=== PATIENT | male | born 1975 | race Caucasian/White ===

== ENCOUNTER 2016-11-26 10:53 | Emergency (ER) | payer SELFPAY ==
[~2016-11-26] VITALS: Ht 170.2 cm; Wt 99.0 kg
[2016-11-26 11:05] VITALS: Ht 170.2 cm; Wt 99.0 kg
[2016-11-26] MEDS ORDERED: IBUP-1724 PO (11:20)
[2016-11-26] MEDS ORDERED: CHLO4TAB32 PO (11:20)
[2016-11-26] MEDS ORDERED: DIPH25TA25 PO (11:20)
[2016-11-26] MEDS ORDERED: GLUC-120 PO (11:21)
[2016-11-26] MEDS ORDERED: UBID100C10 PO (11:21)
[2016-11-26] MEDS ORDERED: MULT1TAB69 PO (11:21)
[2016-11-26] MEDS ORDERED: OMEG300C PO (11:23)
[2016-11-26] MEDS ORDERED: VITA200T6 PO (11:23)
[2016-11-26] MEDS ORDERED: CINN500C14 PO (11:23)
[2016-11-26] MEDS ORDERED: NORMAL SALINE 1,000 ML IV ONE (11:43)
--- NOTE | 2016-11-26 11:43 | ERPDOC ---
Departure Disposition Decision Date: Nov 26, 2016 Disposition Decision Time: 13:27 Disposition: 01 DISCHARGED HOME, SELF-CARE Impression Impression Impression: Primary Impression: Gastroenteritis and colitis, viral Additional Impression: HTN (hypertension) Severity: Moderate Condition: Improved Seen By: Physician only Patient Instructions: Acute Nausea and Vomiting (ED) Problems/Meds/Labs Reviewed?: Yes Medications reviewed and manag: Yes Additional Instructions: Follow up with Dr Mcdermott next week per appointment. Zofran 4mg every 6 hours as needed for nausea Percocet 5mg tab, #5 tabs. may use one every 8 hours as needed for abd cramping. Follow up care ordered?: Yes Mental Status: Alert, Oriented Scripts Ondansetron (Zofran Odt) 4 Mg Tab.rapdis 4 MG PO Q6HR for NAUSEA, #30 TAB Oral disintegrating tablet Prov: CATRACHITA CORDOBA MD 11/26/16 Oxycodone HCl/Acetaminophen (Percocet 5-325 mg Tablet) 5-325 Tablet 1 TAB PO TID for PAIN, #5 TAB Take 1 tablet, by mouth, 4 times a day. Prov: CATRACHITA CORDOBA MD 11/26/16 HPI - Abdominal Pain General Chief Complaint: Abdominal Pain Stated Complaint: ABD PAIN Time Seen by Provider: 11:41 HPI - Abdominal Pain Initial Comments 41-year-old gentleman with epigastric pain, nausea and vomiting. Patient felt fine until yesterday when he vomited after dinner. He had a couple episodes of diarrhea. As well. This resolved overnight and he slept well. He ate breakfast this morning and threw up again. Tried to go to work, but was cramping so badly that he came to the emergency department. No fever, but has had chills. No dysuria or hesitancy or urgency, no flank pain. No shortness of breath dyspnea or chest pain. is not sick. He does have hypertension, also has a brother that had an ND when he was 43, same age as the patient. Allergies: Coded Allergies: No Known Allergies (Unverified , 11/26/16) Past History Past Medical History Metabolic: hypertension Surgical History Denies Surgeries Social History Smoking Status: Former smoker Substance Use Type: does not use Record Review Pertinent history updated: Yes Review of Systems Cardiovascular Cardiac: see HPI Pulmonary Respiratory: see HPI All other Systems All Other Systems: Reviewed and Negative Physical Exam General General Nourishment: well nourished, well developed, appears stated age General Body Habitus: well groomed Vitals and Pain First Documented Vital Signs Date Time Temp Pulse Resp B/P Pulse Ox O2 Delivery O2 Flow Rate FiO2 11/26/16 11:05 97.7 73 16 135/81 98 Room Air Weight: Kilograms: 99.000 Height (feet): 5 Height (inches): 7.00 Triage Pain Scale: Normal Exams: Head: Normocephalic w/o trauma Chest/Resp: Clear all clark, with good airflow, and symmetry bilaterally CV: Regular rate and rhythm, without murmur or gallop, Pulses 2+ all extremities, capillary refill, <2 seconds all ext., no pedal edema noted Abdomen: Bowel sounds positive, non-distended, no hepatosplenomegaly, masses or bruits noted Neurologic: Patient is alert, and oriented, cranial nerves, motor/sensory/ cerebellar, exams w/o gross deficits, to observation Psychiatric: Patient exhibits, appropriate attention, emotion and affect Abdomen (brief) Comments mild mid epigastric tenderness to palp. mild tenderness llq Differential Diagnoses Considering: Cholecystitis, Constipation, Diverticulitis, Gastroenteritis, GERD , GI Bleed, Hepatitis, Hernia, Ileus, UTI, Volvulus Progress Results/Orders Orders Procedure Category Date Status Time Iv Lock (Ed Only) EDM 11/26/16 Transmitted 11:43 Cbc W/Auto LAB 11/26/16 Complete Diff-Reflex Manual 11:43 Cmp - Comprehensive LAB 11/26/16 Complete Metabolic 11:43 Lipase LAB 11/26/16 Complete 11:43 Ua, Dip Wreflex LAB 11/26/16 Logged [employer]er 11:43 EKG EKG 11/26/16 Taken 11:43 Kub W/Upright RAD 11/26/16 Resulted 11:43 Normal Saline (Normal PHA 11/26/16 Complete Saline Iv) 11:43 Ondansetron Inj PHA 11/26/16 Complete (Zofran) 11:45 Ketorolac (Toradol) PHA 11/26/16 Complete 11:45 Lab Results Laboratory Tests Test 11/26/16 12:15 White Blood Count 7.7T/MM3 Red Blood Count 5.45M/MM3 Hemoglobin 15.8GM/DL Hematocrit 45.7% Mean Corpuscular Volume 83.9UM3 Mean Corpuscular Hemoglobin 29.0UUG Mean Corpuscular Hemoglobin Concent 34.6GM/DL RDW Standard Deviation 40.3FL Platelet Count 224T/MM3 Mean Platelet Volume 9.7UM3 Immature Granulocyte % (Auto) % Neutrophils (%) (Auto) % Lymphocytes (%) (Auto) % Monocytes (%) (Auto) % Eosinophils (%) (Auto) % Basophils (%) (Auto) % Absolute Immature Granulocyte (auto T/MM3 Absolute Neutrophils (auto) T/MM3 Absolute Lymphocytes (auto) T/MM3 Absolute Monocytes (auto) T/MM3 Absolute Eosinophils (auto) T/MM3 Absolute Basophils (auto) T/MM3 Neutrophils % (Manual) 88.0% Band Neutrophils % 4.0% Lymphocytes % (Manual) 7.0% Monocytes % (Manual) 1.0% Absolute Neutrophils (Manual) 6.8T/MM3 Band Neutrophils # 0.3T/MM3 Lymphocytes # (Manual) 0.5T/MM3 Monocytes # (Manual) 0.1T/MM3 Red Cell Morphology Comment Normal Turbidity < 20 Sodium Level 143MEQ/L Potassium Level 4.6MEQ/L Chloride Level 103MEQ/L Carbon Dioxide Level 28MEQ/L Anion Gap 12MEQ/L Blood Urea Nitrogen 13.0MG/DL Creatinine 0.7MG/DL Glomerular Filtration Rate Calc 123 BUN/Creatinine Ratio 19RATIO Glucose Level 116MG/DL Calculated Osmolality 276MOSM/KG Calcium Level 9.4MG/DL Total Bilirubin 0.90MG/DL Icterus Index < 2 Aspartate Amino Transf (AST/SGOT) 38U/L Alanine Aminotransferase (ALT/SGPT) 60U/L Alkaline Phosphatase 80U/L Total Protein 8.3G/DL Albumin 4.5G/DL Globulin 3.8G/DL Albumin/Globulin Ratio 1.2RATIO Lipase 227U/L Chemistry Specimen Hemolysis < 15 Medications Current ED Medications Sodium Chloride (Normal Saline IV) 1,000 ml @ 1,000 mls/hr Q1H ONCE IV Last administered on 11/26/16 12:19; Start 11/26/16 at 11:43; Stop 11/26/16 at 12:42 ; Status DC Ondansetron HCl (Zofran) 4 mg O ONCE IV Last administered on 11/26/16 12:20; Start 11/26/16 at 11:45; Stop 11/26/16 at 11:46; Status DC Ketorolac Tromethamine (Toradol) 30 mg O ONCE IV Last administered on t 12:19; Start 11/26/16 at 11:45; Stop 11/26/16 at 11:46; Status DC Progress Progress Labs returned appropriate with normal white count, normal CMP. Patient has negative troponin. EKG was non-acute, although was electronically read as possible inferior ND. Discussed symptoms with the patient, reviewed with Suzanne Cash. At this point we feel that this is not an acute event with the heart, patient does have a family history of coronary artery disease, with a brother of 43 years old being worked up for an ND. He does have elevated blood pressure. He is set up to see Dr. Mcdermott or Nargis MARTINEZ on the seventh in the office. Patient is aware of this and is willing to go. I do think is very important that he follow-up on that. He'll be given a prescription of Zofran and of 5 Percocet tablets to be used for the cramping from gastroenteritis in the meantime. He'll return to the ED if symptoms worsen. CATRACHITA CORDOBA MD Nov 26, 2016 11:43
[2016-11-26] MEDS ORDERED: KETOROLAC 30mg/ml INJECTION IV ONE (11:45)
[2016-11-26] MEDS ORDERED: ONDANSETRON 4mg/2ml INJECTION IV ONE (11:45)
--- NOTE | 2016-11-26 12:00 | NUR ---
TO XRAY PER CART.
--- NOTE | 2016-11-26 12:04 | NUR ---
BACK FROM XRAY
--- NOTE | 2016-11-26 12:07 | NUR ---
ELIMINATION PATIENT UP TO BR TO VOID. UA TO BE COLLECTED.
[2016-11-26 12:22] LABS: HCT - HEMATOCRIT 45.7 % (41-53); HGB - HEMOGLOBIN 15.8 GM/DL (13.5-17.5); MEAN CORPUSCULAR HGB CONC(MCHC 34.6 GM/DL (31-37); MEAN CORPUSCULAR VOLUME 83.9 UM3 (80-100); MEAN PLATELET VOLUME 9.7 UM3 (9.4-12.4); RED BLOOD COUNT 5.45 M/MM3 (4.50-5.90); WBC - WHITE BLOOD COUNT 7.7 T/MM3 (4.5-11.0)
--- NOTE | 2016-11-26 12:29 | NUR ---
PROVIDER DR CORDOBA IN TO SEE PATIENT.
[2016-11-26 12:31] LABS: ALBUMIN 4.5 G/DL (3.5-5.0); ALBUMIN/GLOBULIN RATIO 1.2 RATIO (1.1-2.2); ALKALINE PHOSPHATASE 80 U/L (38-126); ALT (SGPT) 60 U/L (21-72); ANION GAP 12 MEQ/L (5-15); AST (SGOT) 38 U/L (17-59); BUN/CREATININE RATIO 19 RATIO (6-26); CALCIUM 9.4 MG/DL (8.4-10.2); CHLORIDE 103 MEQ/L (98-107); CO2 - CARBON DIOXIDE 28 MEQ/L (22-30); CREATININE 0.7 MG/DL (0.8-1.5); GLOMERULAR FILTRATION RATE 123; GLUCOSE 116 MG/DL (75-110); LIPASE 227 U/L (23-300); POTASSIUM 4.6 MEQ/L (3.6-5); SODIUM 143 MEQ/L (134-144); TOTAL PROTEIN 8.3 G/DL (6.3-8.2)
[2016-11-26 12:46] LABS: BAND NEUTROPHILS # 0.3 T/MM3; LYMPHOCYTES # (MANUAL) 0.5 T/MM3 (1-4.8); MONOCYTES # (MANUAL) 0.1 T/MM3 (0-0.8); NEUTROPHILS #(MANUAL)-ABSOLUTE 6.8 T/MM3 (1.8-7.7); TOTAL CELLS COUNTED 100 %
--- NOTE | 2016-11-26 12:49 | DI ---
Indication: ITS.REASON: abdominal pain and vomiting PROCEDURE: KUB W/UPRIGHT: Encounter: Initial Comparison: None Findings: The visualized lung bases are clear. There is no free air on the upright view. There are a few mildly dilated loops of small bowel left abdomen measuring up to 4 cm in diameter. A couple small air-fluid levels on the upright view. There is colonic gas seen throughout the colon. The bony structures are grossly unremarkable. Impression: Mildly dilated small bowel loops in the left abdomen. Findings could relate to focal ileus or partial small bowel obstruction. .
--- NOTE | 2016-11-26 12:54 | NUR ---
PROVIDER DR CORDOBA IN TO SEE PATIENT.
[2016-11-26] MEDS ORDERED: OXYC1TAB8 PO (13:31)
[2016-11-26] MEDS ORDERED: ONDA4TAB7 PO (13:31)
--- NOTE | 2016-11-26 13:41 | NUR ---
PROVIDER DR CORDOBA IN TO SEE PATIENT.
[2016-11-26 13:45] VITALS: BP 123/71; PULSE 71; RESP 16; TEMP 98; O2SAT 99
== END 2016-11-26 13:45 | disposition home or self-care (01) ==
LOC: ED 10:53
DX: A08.4 Viral intestinal infection, unspecified (principal); I10 Essential (primary) hypertension
CPT/HCPCS: 80053; 83690; 85025; 93005